=== PATIENT | male | born 1975 | race Caucasian/White ===

== ENCOUNTER 2017-10-30 06:37 | Emergency (ER) | payer OTHER ==
[2017-10-30] MEDS ORDERED: FAMOTIDINE 20 MG TAB PO STA (07:38)
[2017-10-30] MEDS ORDERED: DEXAMETHASONE SOD PHOSPHATE 10 MG/ML 1 ML VIAL IM STA (07:38)
[2017-10-30] MEDS ORDERED: predniSONE 20 MG TAB PO STA (07:38)
[2017-10-30] MEDS ORDERED: hydrOXYzine HCL 25 MG TAB PO STA (07:38)
--- NOTE | 2017-10-30 07:45 | ED ---
General Adult HPI - General Chief complaint: Skin/Abscess/Foreign Body Stated complaint: skin problem Time Seen by Provider: 10/30/17 07:30 Source: patient, RN notes reviewed, old records reviewed Mode of arrival: ambulatory Limitations: no limitations - History of Present Illness Initial comments: This is a 41-year-old male to the ER for evaluation of rash. Patient has had rash is been progressing now for a few days. Patient initially had thermal burn to right hand. Patient did receive burn care for that right hand. They began to show signs of infection and was treated with antibiotics and Bactroban , patient states once he started that medication (the worse itching rash rising up arms and onto his face. Patient denies any shortness of breath cough congestion or fever. Patient denies any pain, states rash is just itchy - Related Data Previous Rx's Medication Instructions Recorded Famotidine [Pepcid] 20 mg PO BID #14 tablet 10/30/17 hydrOXYzine HCL [Atarax] 25 mg PO TID PRN #15 tab 10/30/17 predniSONE 50 mg PO DAILY #5 tab 10/30/17 Allergies Allergy/AdvReac Type Severity Reaction Status Date / Time No Known Allergies Allergy Verified 10/30/17 06:45 Review of Systems ROS Statement: Those systems with pertinent positive or pertinent negative responses have been documented in the HPI. ROS Other: All systems not noted in ROS Statement are negative. Past Medical History Past Medical History: No Reported History, Asthma, COPD, Hypertension History of Any Multi-Drug Resistant Organisms: None Reported Past Surgical History: Appendectomy Past Psychological History: No Psychological Hx Reported Smoking Status: Current every day smoker Past Alcohol Use History: Occasional Past Drug Use History: Marijuana General Exam - General Exam Comments Initial Comments: Patient with rash to face, forehead, cheeks, right and left hands spreading up arm, pleuritic rash erythematous Limitations: no limitations General appearance: alert, in no apparent distress Head exam: Present: atraumatic, normocephalic, normal inspection Eye exam: Present: normal appearance, PERRL, EOMI. Absent: scleral icterus, conjunctival injection, periorbital swelling ENT exam: Present: normal exam, mucous membranes moist Neck exam: Present: normal inspection. Absent: tenderness, meningismus, lymphadenopathy Respiratory exam: Present: normal lung sounds bilaterally. Absent: respiratory distress, wheezes, rales, rhonchi, stridor Cardiovascular Exam: Present: regular rate, normal rhythm, normal heart sounds. Absent: systolic murmur, diastolic murmur, rubs, gallop, clicks GI/Abdominal exam: Present: soft, normal bowel sounds. Absent: distended, tenderness, guarding, rebound, rigid Extremities exam: Present: normal inspection, full ROM, normal capillary refill. Absent: tenderness, pedal edema, joint swelling, calf tenderness Back exam: Present: normal inspection Neurological exam: Present: alert, oriented X3, CN II-XII intact Psychiatric exam: Present: normal affect, normal mood Skin exam: Present: warm, dry, intact, normal color. Absent: rash Course Vital Signs 10/30/17 06:38 Temperature 97.0 F L Pulse Rate 101 H Respiratory 18 Rate Blood Pressure 139/92 O2 Sat by Pulse 99 Oximetry - Reevaluation(s) Reevaluation #1: 10/30/17 07:43 Patient currently taking Augmentin and Bactroban Medical Decision Making - Medical Decision Making The ER for evaluation of rash. Rash on right arm left arm spreading up arms and onto face. Patient had recent burn was treated for infection and is currently having worse rash that is itchy, patient will be treated with antihistamines, steroids and discharged Disposition Clinical Impression: Contact dermatitis Disposition: HOME SELF-CARE Condition: Good Instructions: Contact Dermatitis (ED) Prescriptions: Famotidine [Pepcid] 20 mg PO BID #14 tablet hydrOXYzine HCL [Atarax] 25 mg PO TID PRN #15 tab PRN Reason: Itching predniSONE 50 mg PO DAILY #5 tab Referrals: Solitario Dobbins MD [Primary Care Provider] - 1-2 days
[2017-10-30 09:01] VITALS: BP 134/72; PULSE 88; RESP 20; TEMP 98
== END 2017-10-30 08:25 | disposition home or self-care (01) ==
LOC: EC 06:37
DX: L25.9 Unspecified contact dermatitis, unspecified cause (principal); F17.200 Nicotine dependence, unspecified, uncomplicated
CPT/HCPCS: 99283; 96372; J1100; J7512

== ENCOUNTER 2019-05-18 06:24 | Emergency (ER) | payer OTHER ==
[2019-05-18] MEDS ORDERED: IPRATROPIUM-ALBUTEROL 3 ML NEB INHALATION STA (06:39)
[2019-05-18] MEDS ORDERED: methylPREDNISolone SOD SUCCI 125 MG/2 ML VIAL IV STA (06:39)
[2019-05-18] MEDS ORDERED: SODIUM CHLORIDE 0.9% 1,000 ML IV STA (06:39)
--- NOTE | 2019-05-18 06:41 | ED ---
SOB HPI - General Chief Complaint: Shortness of Breath Stated Complaint: SOB Time Seen by Provider: 05/18/19 06:32 Source: patient, RN notes reviewed, old records reviewed Mode of arrival: ambulatory Limitations: no limitations - History of Present Illness Initial Comments: 43-year-old male with history of COPD and asthma presents today with chief compl aint of difficulty breathing onset last night and stay. Patient states that he took some Mucinex DM with a little bit of her relief and had his coughing under control. He states that the cough is a yellow phlegm which then turned to clear phlegm. Patient states he's had no fevers or chills. He denies chest pain. 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 He is a smoker. - Related Data Home Medications Medication Instructions Recorded Confirmed Albuterol Inhaler [Ventolin Hfa 1 - 2 puff INHALATION RT-Q6H PRN 10/30/17 05/18/19 Inhaler] Albuterol Nebulized [Ventolin 2.5 mg INHALATION RT-Q6H PRN 05/18/19 05/18/19 Nebulized] Previous Rx's Medication Instructions Recorded predniSONE 50 mg PO DAILY #5 tab 05/18/19 Allergies Allergy/AdvReac Type Severity Reaction Status Date / Time bee venom protein (honey bee) Allergy Anaphylaxis Verified 05/18/19 07:26 Review of Systems ROS Statement: Those systems with pertinent positive or pertinent negative responses have been documented in the HPI. ROS Other: All systems not noted in ROS Statement are negative. Past Medical History Past Medical History: No Reported History, Asthma, COPD, Hypertension History of Any Multi-Drug Resistant Organisms: None Reported Past Surgical History: Appendectomy Past Psychological History: Bipolar, Depression Smoking Status: Current every day smoker Past Alcohol Use History: Occasional Past Drug Use History: Marijuana General Exam - General Exam Comments Initial Comments: This is a 43-year-old male. Alert and oriented. No distress. Limitations: no limitations General appearance: alert, in no apparent distress Head exam: Present: atraumatic, normocephalic, normal inspection Eye exam: Present: normal appearance, PERRL, EOMI. Absent: scleral icterus, conjunctival injection, periorbital swelling ENT exam: Present: normal exam, mucous membranes moist Neck exam: Present: normal inspection. Absent: tenderness, meningismus, lymphadenopathy Respiratory exam: Present: wheezes (Minimal wheezing bilaterally.). Absent: normal lung sounds bilaterally, rales, rhonchi, stridor Cardiovascular Exam: Present: regular rate, normal rhythm, normal heart sounds. Absent: systolic murmur, diastolic murmur, rubs, gallop, clicks GI/Abdominal exam: Present: soft, normal bowel sounds. Absent: distended, tenderness, guarding, rebound, rigid Extremities exam: Present: normal inspection, full ROM, normal capillary refill. Absent: tenderness, pedal edema, joint swelling, calf tenderness Back exam: Present: normal inspection Neurological exam: Present: alert, oriented X3, CN II-XII intact Psychiatric exam: Present: normal affect, normal mood Skin exam: Present: warm, dry, intact, normal color. Absent: rash Course Vital Signs 05/18/19 05/18/19 05/18/19 06:27 06:54 07:05 Temperature 98.8 F Pulse Rate 90 80 82 Respiratory 20 16 16 Rate Blood Pressure 155/89 O2 Sat by Pulse 98 Oximetry Medical Decision Making - Medical Decision Making 43-year-old male with history of COPD and asthma presents with wheezing and cough for the past day. He's been taking his inhalers and using decongestants a little relief. He states it seemed worse this morning. Patient was given a double DuoNeb treatment IV site Medrol labwork was obtained. Patient's labwork was reviewed and unremarkable. Normal chest x-ray. Normal EKG. On reevaluation patient's wheezing is diminished and lung sounds are clear. He states he wants feels well to be discharged home. Patient advised to discontinue smoking greater than 5 minutes was spent discussing this with Patient. Patient will be discharged with a prescription for Solu-Medrol continuing his inhalers. Discussed case be follow-up. - Lab Data Result diagrams: 05/18/19 07:25 05/18/19 07:25 Lab Results 05/18/19 05/18/19 05/18/19 Range/Units 07:25 07:25 07:25 WBC 11.3 H (3.8-10.6) k/uL RBC 4.85 (4.30-5.90) m/uL Hgb 15.2 (13.0-17.5) gm/dL Hct 43.5 (39.0-53.0) % MCV 89.7 (80.0-100.0) fL MCH 31.3 (25.0-35.0) pg MCHC 34.9 (31.0-37.0) g/dL RDW 12.8 (11.5-15.5) % Plt Count 224 (150-450) k/uL Neutrophils % 67 % Lymphocytes % 26 % Monocytes % 4 % Eosinophils % 1 % Basophils % 0 % Neutrophils # 7.6 (1.3-7.7) k/uL Lymphocytes # 3.0 (1.0-4.8) k/uL Monocytes # 0.4 (0-1.0) k/uL Eosinophils # 0.1 (0-0.7) k/uL Basophils # 0.0 (0-0.2) k/uL PT 9.5 (9.0-12.0) sec INR 0.9 (<1.2) APTT 26.1 (22.0-30.0) sec Sodium 139 (137-145) mmol/L Potassium 3.7 (3.5-5.1) mmol/L Chloride 107 (98-107) mmol/L Carbon Dioxide 25 (22-30) mmol/L Anion Gap 7 mmol/L BUN 9 (9-20) mg/dL Creatinine 0.92 (0.66-1.25) mg/dL Est GFR (CKD-EPI)AfAm >90 (>60 ml/min/1.73 sqM) Est GFR (CKD-EPI)NonAf >90 (>60 ml/min/1.73 sqM) Glucose 110 H (74-99) mg/dL Calcium 9.2 (8.4-10.2) mg/dL Total Bilirubin 0.9 (0.2-1.3) mg/dL AST 21 (17-59) U/L ALT 31 (21-72) U/L Alkaline Phosphatase 82 (38-126) U/L Troponin I (0.000-0.034) ng/mL Total Protein 6.8 (6.3-8.2) g/dL Albumin 4.0 (3.5-5.0) g/dL 05/18/19 Range/Units 07:25 WBC (3.8-10.6) k/uL RBC (4.30-5.90) m/uL Hgb (13.0-17.5) gm/dL Hct (39.0-53.0) % MCV (80.0-100.0) fL MCH (25.0-35.0) pg MCHC (31.0-37.0) g/dL RDW (11.5-15.5) % Plt Count (150-450) k/uL Neutrophils % % Lymphocytes % % Monocytes % % Eosinophils % % Basophils % % Neutrophils # (1.3-7.7) k/uL Lymphocytes # (1.0-4.8) k/uL Monocytes # (0-1.0) k/uL Eosinophils # (0-0.7) k/uL Basophils # (0-0.2) k/uL PT (9.0-12.0) sec INR (<1.2) APTT (22.0-30.0) sec Sodium (137-145) mmol/L Potassium (3.5-5.1) mmol/L Chloride (98-107) mmol/L Carbon Dioxide (22-30) mmol/L Anion Gap mmol/L BUN (9-20) mg/dL Creatinine (0.66-1.25) mg/dL Est GFR (CKD-EPI)AfAm (>60 ml/min/1.73 sqM) Est GFR (CKD-EPI)NonAf (>60 ml/min/1.73 sqM) Glucose (74-99) mg/dL Calcium (8.4-10.2) mg/dL Total Bilirubin (0.2-1.3) mg/dL AST (17-59) U/L ALT (21-72) U/L Alkaline Phosphatase (38-126) U/L Troponin I <0.012 (0.000-0.034) ng/mL Total Protein (6.3-8.2) g/dL Albumin (3.5-5.0) g/dL 05/18/19 07:08 EKG shows normal sinus rhythm normal EKG. Ventricular rate of 85 bpm. MS interval is 152 milliseconds. QRS duration 104 ms. QTQTC 3-4/456 ms. - Radiology Data Radiology results: report reviewed Chest x-ray is negative for any acute cardio pulmonary process. Disposition Clinical Impression: COPD exacerbation Disposition: HOME SELF-CARE Condition: Good Instructions (If sedation given, give patient instructions): Asthma (ED) Additional Instructions: Patient should start the steroids tomorrow. Continue use your inhalers as directed. Follow-up with your primary care doctor within the next 1-2 days. Recommended having discussions about smoking cessation with PCP, and try to quit smoking. Prescriptions: predniSONE 50 mg PO DAILY #5 tab Is patient prescribed a controlled substance at d/c from ED?: No Referrals: Solitario Dobbins MD [Primary Care Provider] - 1-2 days Time of Disposition: 08:37
[2019-05-18 07:33] LABS: Basophils % (A) 0 %; Eosinophils # (A) 0.1 k/uL (0-0.7); Eosinophils % (A) 1 %; HCT 43.5 % (39.0-53.0); HGB 15.2 gm/dL (13.0-17.5); Lymphocytes % (A) 26 %; MCH 31.3 pg (25.0-35.0); MCHC 34.9 g/dL (31.0-37.0); MCV 89.7 fL (80.0-100.0); Mean Platelet Volume 6.8; Monocytes # (A) 0.4 k/uL (0-1.0); Monocytes % (A) 4 %; Neutrophils # (A) 7.6 k/uL (1.3-7.7); Neutrophils % (A) 67 %; Platelet Count 224 k/uL (150-450); RBC 4.85 m/uL (4.30-5.90); RDW 12.8 % (11.5-15.5); WBC 11.3 k/uL (3.8-10.6)
[2019-05-18 07:42] LABS: INR 0.9 (<1.2); Partial Thromboplastin Time 26.1 sec (22.0-30.0); Prothrombin Time 9.5 sec (9.0-12.0)
[2019-05-18 07:45] LABS: ALT 31 U/L (21-72); AST 21 U/L (17-59); African American GFR (CKD) >90 (>60 ml/min/1.73 sqM); Alkaline Phosphatase 82 U/L (38-126); Anion Gap 7 mmol/L; Blood Urea Nitrogen 9 mg/dL (9-20); Calcium 9.2 mg/dL (8.4-10.2); Carbon Dioxide 25 mmol/L (22-30); Chloride 107 mmol/L (98-107); Glucose 110 mg/dL (74-99); Potassium 3.7 mmol/L (3.5-5.1); Sodium 139 mmol/L (137-145); Total Bilirubin 0.9 mg/dL (0.2-1.3); Total Protein 6.8 g/dL (6.3-8.2)
--- NOTE | 2019-05-18 08:28 | XR ---
EXAMINATION TYPE: XR chest 2V DATE OF EXAM: 05/18/2019 COMPARISON: Prior chest x-ray 12/07/2014 HISTORY: Difficulty breathing, shortness of breath TECHNIQUE: Frontal and lateral views of the chest are obtained. FINDINGS: There is no focal air space opacity, pleural effusion, or pneumothorax seen. The cardiac silhouette size is within normal limits. Lung volumes are prominent. The osseous structures are inta ct. IMPRESSION: No acute cardiopulmonary process.
[2019-05-18 08:54] VITALS: BP 134/69; PULSE 83; RESP 19; TEMP 97.9
== END 2019-05-18 08:55 | disposition home or self-care (01) ==
LOC: EC 06:24
DX: J44.1 Chronic obstructive pulmonary disease with (acute) exacerbation (principal); F17.200 Nicotine dependence, unspecified, uncomplicated; Z71.6 Tobacco abuse counseling; Z91.030 Bee allergy status; Z79.51 Long term (current) use of inhaled steroids
CPT/HCPCS: 36415; 94640; 93005; 80053; 84484; 85025; 85610; 85730; 71046; 99285; 96374; 96361; J2930

== ENCOUNTER → 2020-05-30 | Outpatient (CLI) | payer OTHER ==
--- NOTE | 2020-05-30 11:52 | XR ---
EXAMINATION TYPE: XR ribs bilateral DATE OF EXAM: 05/30/2020 COMPARISON: NONE HISTORY: Right-sided rib pain TECHNIQUE: 4 views were obtained of the right and left rib cage FINDINGS: Biapical pleural thickening. Rib cage intact. No acute displaced rib fracture. Lungs clear. No obviou s pneumothorax. IMPRESSION: No acute displaced rib fracture
== END | disposition home or self-care (01) ==
LOC: RADXRMAIN 11:32
PROVIDERS: ATTEND Family Medicine
DX: R07.81 Pleurodynia (principal)
CPT/HCPCS: 71110

== ENCOUNTER → 2020-09-04 | Outpatient (CLI) | payer OTHER | END | disposition home or self-care (01) | LOC: LABWHC1 16:16 | PROVIDERS: ATTEND Family Medicine | DX: U07.1 COVID-19 (principal) | CPT/HCPCS: U0003; C9803 ==

== ENCOUNTER → 2020-11-09 | Outpatient (CLI) | payer OTHER | END | disposition home or self-care (01) | LOC: LABWHC1 16:53 | PROVIDERS: ATTEND Family Medicine | DX: Z20.822 Contact with and (suspected) exposure to COVID-19 (principal) | CPT/HCPCS: U0003; C9803 ==

== ENCOUNTER 2022-09-19 13:34 | Inpatient (IN) | payer OTHER ==
[2022-09-19] MEDS ORDERED: HEPARIN SODIUM 1,000 UN/ML (10ML VL) IV ONE (13:38)
[2022-09-19] MEDS ORDERED: SODIUM CHLORIDE 0.9% 1,000 ML IV STA (13:38)
[2022-09-19] MEDS ORDERED: MORPHINE SULFATE 2 MG/ML SYRINGE IVP STA ×2 (13:40→21:30)
[2022-09-19] MEDS ORDERED: MORPHINE SULFATE 4 MG/ML SYRINGE IVP STA (13:40)
[2022-09-19] MEDS ORDERED: HEPARIN SOD,PORK IN 0.45% NACL 25,000 UNIT in 0.45% NACL 1 250ML.BAG IV SCH (13:45)
--- NOTE | 2022-09-19 13:53 | ED ---
General Adult HPI - General Stated complaint: chest pain Time Seen by Provider: 09/19/22 13:34 Source: patient, EMS, RN notes reviewed, old records reviewed - History of Present Illness Initial comments: Patient is a 46-year-old male with past medical history remarkable for COPD, hypertension, CAD who took Cialis last night at approximately 4-5 PM presents emergency Department with sudden onset chest pain. Patient states he was having some chest discomfort this morning but it was extremely severe when he awoke at 1310. Immediately called EMS. States it was left-sided, sharp and achy. Very severe. When EMS arrived, they administered the patient 324 mg of aspirin, and brought the patient to the emergency department for further evaluation. Monitor did show signs concerning for ST segment elevations. Her 12-lead EKG does reveal an inferior wall MD with elevations in 2, 3, aVF as well as presurgical changes in V2, 1. The patient has no other symptoms at this time. He states he was diaphoretic and is still diaphoretic from the pain. Was a little lightheaded earlier which has since resolved. Already received 324 mg of chewable aspirin from EMS. Has not received any nitroglycerin tablets. Presents for further evaluation at this time. No history of MIs for the patient. - Related Data Home Medications Medication Instructions Recorded Confirmed Albuterol Inhaler [Ventolin Hfa 2 puff INHALATION RT-Q4H PRN 10/30/17 09/19/22 Inhaler] Albuterol Nebulized [Ventolin 2.5 mg INHALATION RT-Q6H PRN 05/18/19 09/19/22 Nebulized] Atorvastatin [Lipitor] 20 mg PO DIRECTED 09/19/22 09/19/22 Fluticasone Nasal [place]valon [Flonase 2 spray EA NOSTRIL DAILY PRN 09/19/22 09/19/22 Nasal Avalon] Fluticasone/Umeclidin/Vilanter 1 puff INHALATION RT-DAILY 09/19/22 09/19/22 [Trelegy Ellipta 200-62.5-25] Montelukast [Singulair] 10 mg PO DIRECTED 09/19/22 09/19/22 tadalafiL 5 mg PO DAILY PRN 09/19/22 09/19/22 Allergies Allergy/AdvReac Type Severity Reaction Status Date / Time bee venom protein (honey bee) Allergy Anaphylaxis Verified 09/19/22 13:55 Review of Systems ROS Statement: Those systems with pertinent positive or pertinent negative responses have been documented in the HPI. Review of Systems: CONST: Denies fever EYES: Denies blurry vision ENT: Denies nasal congestion C/V: Endorses chest pain RESP: Denies shortness of breath GI: Denies abdominal pain : Denies dysuria SKIN: Denies rash. MSK: Denies joint pain. NEURO: Denies headache ROS Other: All systems not noted in ROS Statement are negative. Past Medical History Past Medical History: No Reported History, Asthma, COPD, Hypertension History of Any Multi-Drug Resistant Organisms: None Reported Past Surgical History: Appendectomy Past Psychological History: Bipolar, Depression Past Alcohol Use History: Occasional Past Drug Use History: Marijuana General Exam - General Exam Comments Initial Comments: General: Appears in moderate to severe distress secondary to chest pain. HEAD: Normal with no signs of head trauma. EYES: PERRLA, EOMI, conjunctiva normal, no discharge. ENT: Hearing grossly intact, normal oropharynx. RESPIRATORY: Clear breath sounds bilaterally. No wheezes, rales, or rhonchi. C/V: Regular rate and rhythm. S1 and S2 auscultated, no edema, peripheral pulses 2+ and intact throughout. chest pain is nonreproducible on palpation. ABD: Abd is soft, nontender, nondistended EXT: Normal range of motion, no obvious deformity SKIN: No rashes or lesions observed on exposed skin. NEURO: Alert and oriented 4. Course Vital Signs 09/19/22 09/19/22 13:35 13:55 Pulse Rate 79 82 Respiratory 20 18 Rate Blood Pressure 149/121 157/128 O2 Sat by Pulse 99 99 Oximetry Medical Decision Making - Medical Decision Making Based on the patient's presentation and physical exam, I'm concerned for an acute ST segment elevation myocardial infarction. Patient took Cialis last night. EKG shows an inferior wall MD. We will avoid nitroglycerin tablets at this time. Vital signs are within acceptable limits. A second large-bore IV will be placed after EMS placed the initial. He already received 324 mg of aspirin from EMS. We'll place the patient on pads and a portable monitor. The STEMI pager was activated. Patient will be given a 1 L fluid bolus, started on IV heparin with a heparin bolus, we will obtain cardiac labs. Vasodilators will be avoided at this time. STEMI pager was activated at 1338. I spoke with Michaela the mid-level provider who works for cardiology as the oracle security consultant Dr. Pace was tied up and another catheter finisher and inspector procedure. They accepted the patient. He'll take the patient emergently to Food [facility]. Patient was transferred on portable last picker with pads with multiple nurses and serous condition to the cardiac catheter finisher and inspector at 1352. Chest x-ray as interpreted by myself reveals no evidence of acute cardiopulmonary process. No infiltrate. Laboratory studies are still pending at this time from initial arrival. I spoke with [facility] Dr. Brown who accepted the patient. [facility] covers for Dr. Dobbins. Patient will be admitted following catheter finisher and inspector procedure. Patient's laboratory studies returned after the patient was taken to [facility] General [facility]. They are remarkable for mild leukocytosis of 12.1 which is likely reactive. Patient's troponin is also elevated to 0.258, as expected. - Lab Data Result diagrams: 09/19/22 13:44 09/19/22 13:44 Lab Results 09/19/22 09/19/22 09/19/22 Range/Units 13:44 13:44 13:44 WBC 12.1 H (3.8-10.6) k/uL RBC 4.85 (4.30-5.90) m/uL Hgb 17.0 (13.0-17.5) gm/dL Hct 46.9 (39.0-53.0) % MCV 96.7 (80.0-100.0) fL MCH 35.1 H (25.0-35.0) pg MCHC 36.3 (31.0-37.0) g/dL RDW 12.8 (11.5-15.5) % Plt Count 300 (150-450) k/uL MPV 7.4 Neutrophils % 50 % Lymphocytes % 42 % Monocytes % 4 % Eosinophils % 1 % Basophils % 1 % Neutrophils # 6.1 (1.3-7.7) k/uL Lymphocytes # 5.1 H (1.0-4.8) k/uL Monocytes # 0.5 (0-1.0) k/uL Eosinophils # 0.2 (0-0.7) k/uL Basophils # 0.1 (0-0.2) k/uL Manual Slide Review Performed RBC Morphology Normal PT 10.2 (9.0-12.0) sec INR 1.0 (<1.2) APTT 22.7 (22.0-30.0) sec Sodium 140 (137-145) mmol/L Potassium 4.0 (3.5-5.1) mmol/L Chloride 108 H (98-107) mmol/L Carbon Dioxide 21 L (22-30) mmol/L Anion Gap 11 mmol/L BUN 9 (9-20) mg/dL Creatinine 0.93 (0.66-1.25) mg/dL Est GFR (CKD-EPI)AfAm >90 (>60 ml/min/1.73 sqM) Est GFR (CKD-EPI)NonAf >90 (>60 ml/min/1.73 sqM) Glucose 138 H (74-99) mg/dL Calcium 9.0 (8.4-10.2) mg/dL Magnesium 2.1 (1.6-2.3) mg/dL Total Bilirubin 1.2 (0.2-1.3) mg/dL AST 23 (17-59) U/L ALT 23 (4-49) U/L Alkaline Phosphatase 101 (38-126) U/L Troponin I (0.000-0.034) ng/mL Total Protein 7.2 (6.3-8.2) g/dL Albumin 4.4 (3.5-5.0) g/dL 09/19/22 Range/Units 13:44 WBC (3.8-10.6) k/uL RBC (4.30-5.90) m/uL Hgb (13.0-17.5) gm/dL Hct (39.0-53.0) % MCV (80.0-100.0) fL MCH (25.0-35.0) pg MCHC (31.0-37.0) g/dL RDW (11.5-15.5) % Plt Count (150-450) k/uL MPV Neutrophils % % Lymphocytes % % Monocytes % % Eosinophils % % Basophils % % Neutrophils # (1.3-7.7) k/uL Lymphocytes # (1.0-4.8) k/uL Monocytes # (0-1.0) k/uL Eosinophils # (0-0.7) k/uL Basophils # (0-0.2) k/uL Manual Slide Review RBC Morphology PT (9.0-12.0) sec INR (<1.2) APTT (22.0-30.0) sec Sodium (137-145) mmol/L Potassium (3.5-5.1) mmol/L Chloride (98-107) mmol/L Carbon Dioxide (22-30) mmol/L Anion Gap mmol/L BUN (9-20) mg/dL Creatinine (0.66-1.25) mg/dL Est GFR (CKD-EPI)AfAm (>60 ml/min/1.73 sqM) Est GFR (CKD-EPI)NonAf (>60 ml/min/1.73 sqM) Glucose (74-99) mg/dL Calcium (8.4-10.2) mg/dL Magnesium (1.6-2.3) mg/dL Total Bilirubin (0.2-1.3) mg/dL AST (17-59) U/L ALT (4-49) U/L Alkaline Phosphatase (38-126) U/L Troponin I 0.258 H* (0.000-0.034) ng/mL Total Protein (6.3-8.2) g/dL Albumin (3.5-5.0) g/dL - EKG Data -: EKG Interpreted by Me EKG Comments: 12-lead Electrocardiogram Interpretation Note EKG was reviewed and interpreted by myself. 12-lead ECG performed at 1334 is interpreted by me as revealing normal sinus rhythm at a rate of 72 beats per minute. [place] is normal. MA interval is 152 ms, QRS duration is 114 ms, QTc is [address] segment elevations in lead II, III, aVF. There are reciprocal depressions in leads I, aVL, V2 with T-wave inversions.. R wave progression across the precordium was satisfactory. My interpretation, this reveals an acute inferior wall MD.. Critical Care Time Critical Care Time: Yes Total Critical Care Time: 15 Critical Care Time: Upon my evaluation, this patient had a high probability of imminent or life- threatening deterioration due to STEMI, which required my direct attention, intervention, and personal management. I have personally provided 15 minutes of critical care time exclusive of time spent on separately billable procedures. Time includes review of laboratory data, radiology results, discussion with consultants, and monitoring for potential decompensation. Interventions were performed as documented in my note. Disposition Clinical Impression: STEMI (ST elevation myocardial infarction) Disposition: ADMITTED IP TO THIS HOSP Condition: Serious Time of Disposition: 13:52
--- NOTE | 2022-09-19 13:54 | XR ---
EXAMINATION TYPE: XR chest 1V portable DATE OF EXAM: 09/19/2022 COMPARISON: Chest x-ray May 18, 2019 HISTORY: Chest pain. TECHNIQUE: 2 AP portable frontal upright views of the chest are obtained. FINDINGS: There is chronic parenchymal changes bilaterally without suspicious focal air space opacit y, pleural effusion, or pneumothorax seen. The cardiac silhouette size is stable and within normal l imits. The osseous structures are demineralized. IMPRESSION: Chronic changes without acute pulmonary process.
[2022-09-19] MEDS ORDERED: HEPARIN SODIUM 1,000 UN/ML (10ML VL) ONE (13:56)
[2022-09-19] MEDS ORDERED: VERAPAMIL 2.5 MG/ML 2 ML AMP ONE (13:56)
[2022-09-19 13:58] LABS: Basophils # (A) 0.1 k/uL (0-0.2); Basophils % (A) 1 %; Eosinophils # (A) 0.2 k/uL (0-0.7); Eosinophils % (A) 1 %; HCT 46.9 % (39.0-53.0); Lymphocytes # (A) 5.1 k/uL (1.0-4.8); Lymphocytes % (A) 42 %; MCH 35.1 pg (25.0-35.0); MCHC 36.3 g/dL (31.0-37.0); MCV 96.7 fL (80.0-100.0); Mean Platelet Volume 7.4; Monocytes # (A) 0.5 k/uL (0-1.0); Monocytes % (A) 4 %; Neutrophils # (A) 6.1 k/uL (1.3-7.7); Neutrophils % (A) 50 %; Platelet Count 300 k/uL (150-450); RBC 4.85 m/uL (4.30-5.90); RDW 12.8 % (11.5-15.5); WBC 12.1 k/uL (3.8-10.6)
[2022-09-19] MEDS ORDERED: MIDAZOLAM 2 MG/2 ML VIAL IVP ONE (14:00)
[2022-09-19 14:05] LABS: Partial Thromboplastin Time 22.7 sec (22.0-30.0); Prothrombin Time 10.2 sec (9.0-12.0)
[2022-09-19] MEDS ORDERED: VERAPAMIL SYRINGE (5 MG/10 ML) IVP ONE ×2 (14:05→14:33)
[2022-09-19] MEDS ORDERED: LIDOCAINE 1% INJ 10MG/ML (30 ML VIAL-PF) SQ ONE (14:05)
[2022-09-19] MEDS ORDERED: niCARdipine 25 MG/10 ML VIAL ONE (14:05)
[2022-09-19] MEDS ORDERED: HYDROmorphone 1 MG/ML 1 ML SYRINGE IVP ONE (14:05)
[2022-09-19 14:08] LABS: ALT 23 U/L (4-49); AST 23 U/L (17-59); African American GFR (CKD) >90 (>60 ml/min/1.73 sqM); Albumin 4.4 g/dL (3.5-5.0); Alkaline Phosphatase 101 U/L (38-126); Anion Gap 11 mmol/L; Blood Urea Nitrogen 9 mg/dL (9-20); Carbon Dioxide 21 mmol/L (22-30); Chloride 108 mmol/L (98-107); Glucose 138 mg/dL (74-99); Magnesium 2.1 mg/dL (1.6-2.3); Non-African American GFR(CKD) >90 (>60 ml/min/1.73 sqM); Sodium 140 mmol/L (137-145); Total Bilirubin 1.2 mg/dL (0.2-1.3); Total Protein 7.2 g/dL (6.3-8.2)
--- NOTE | 2022-09-19 14:08 | P.CRDCN ---
History of Present Illness History of present illness: HISTORY OF PRESENTING ILLNESS This is a pleasant 46-year-old male past medical history significant for hypertension, dyslipidemia, chronic nicotine dependence, COPD. He does not follow with a interventional radiologist. We have been asked to see in consultation for STEMI. Patient presents to ER with left sided chest discomfort that started this morning but progressively got worse this afternoon. Located on the left side of his chest. It is non-radiating. Aggravated by exertion. Sharp and excruciating per patient. He had associated shortness of breath, nausea, vomiting and diaphoresis. EMS was called and patient was brought to the emergency department. EKG revealed old inferior wall RI with ST elevations in lead II, III, aVF. He denies any history of CAD, RI, stenting, valvular abnormalities, diabetes, stroke or seizures. He is a current every day smoker. Took Cialis last night around 5pm. DIAGNOSTICS * EKG reveals sinus rhythm, heart rate 72, ST elevation in leads II, III, aVF, ST depression in lead V2 * Chest xray no acute heart failure noted, chronic changes. No acute cardiopulmonary process * Laboratory date pending REVIEW OF SYSTEMS At the time of my exam: CONSTITUTIONAL: Denies fever or chills. +diaphoresis CARDIOVASCULAR:+ chest pain, +shortness of breath, Denies orthopnea, PND or palpitations. RESPIRATORY: Denies cough. GASTROINTESTINAL: Denies abdominal pain, diarrhea, constipation, +nausea +vomiting. MUSCULOSKELETAL: Denies myalgias. NEUROLOGIC: Denies numbness, tingling, headacbe or weakness. ENDOCRINE: Denies fatigue, weight change, polydipsia or polyurina. GENITOURINARY: Denies burning, hematuria or urgency with micturation. HEMATOLOGIC: Denies history of anemia or bleeding. PHYSICAL EXAMINATION Blood pressure 149/121, heart rate 79, saturations 99% 4L NC CONSTITUTIONAL: Diaphoretic HEENT: Head is normocephalic. No JVD. CHEST EXAMINATION: Lungs are clear to auscultation. HEART EXAMINATION: Regular rate and rhythm. S1, S2 heard. ABDOMEN: Soft, nontender. EXTREMITIES:no lower extremity edema and no calf tenderness. NEUROLOGIC EXAMINATION: Patient is awake, alert and oriented x3. ASSESSMENT Inferior STEMI History of hypertension Dyslipidemia Chronic nicotine dependence COPD PLAN Patient taken urgently to cardiac brick and blocker aid labor for cardiac catheterization. Procedure explained to patient and at bedside I have discussed the risks, benefits and alternative therapies for the above- mentioned procedure and for both sedation/analgesia as well as necessary blood product administration, if indicated, as they pertain to this patient. The patient has indicated understanding and acceptance of the risks and procedures discussed. Questions have been answered appropriately and he is agreeable to move forward with the above-stated procedure. Obtain 2D echocardiogram and doppler study to assess cardiac structure and function post procedural Further recommendations based on clinical course Nurse practitioner note has been reviewed by physician. Signing provider agrees with the documented findings, assessment, and plan of care. Past Medical History Past Medical History: No Reported History, Asthma, COPD, Hypertension History of Any Multi-Drug Resistant Organisms: None Reported Past Surgical History: Appendectomy Past Psychological History: Bipolar, Depression Past Alcohol Use History: Occasional Past Drug Use History: Marijuana Medications and Allergies Home Medications Medication Instructions Recorded Confirmed Type Albuterol Inhaler [Ventolin Hfa 1 - 2 puff INHALATION RT-Q6H PRN 10/30/17 05/18/19 History Inhaler] Albuterol Nebulized [Ventolin 2.5 mg INHALATION RT-Q6H PRN 05/18/19 05/18/19 History Nebulized] predniSONE 50 mg PO DAILY #5 tab 05/18/19 Rx Allergies Allergy/AdvReac Type Severity Reaction Status Date / Time bee venom protein (honey bee) Allergy Anaphylaxis Verified 09/19/22 13:55 Physical Exam Vitals: Vital Signs Pulse Resp BP Pulse Ox 09/19/22 13:35 79 20 149/121 99 Intake and Output 09/18/22 09/19/22 09/19/22 22:59 06:59 14:59 Other: Weight 95.254 kg Results Current Medications Generic Name Dose Route Start Last Admin Trade Name Freq PRN Reason Stop Dose Admin Sodium Chloride 1,000 mls @ 999 mls/hr 09/19/22 13:38 Saline 0.9% IV 09/19/22 14:38 .Q1H1M STA Heparin Sodium/Sodium Chloride 250 mls @ 0 mls/hr 09/19/22 13:45 25,000 unit/ Sodium Chloride IV .Q0M [facility] Protocol 12 UNITS/KG/HR Intake and Output 09/18/22 09/19/22 09/19/22 22:59 06:59 14:59 Other: Weight 95.254 kg Patient Weight 09/20/22 06:59 Weight 95.254 kg
[2022-09-19] MEDS ORDERED: HYDROmorphone 1 MG/ML 1 ML SYRINGE ONE (14:09)
[2022-09-19] MEDS ORDERED: HEPARIN SODIUM 1,000 UN/ML (10ML VL) IVP ONE ×2 (14:11→14:28)
[2022-09-19] MEDS ORDERED: CLOPIDOGREL 75 MG TAB PO ONE (14:12)
[2022-09-19 14:33] LABS: RBC Morphology Normal
[2022-09-19] MEDS ORDERED: IOPAMIDOL-370 100ML BTL INJ ONE (14:33)
[2022-09-19] MEDS ORDERED: SODIUM CHLORIDE 0.9% 1,000 ML IV ONE (14:35)
[2022-09-19] MEDS ORDERED: ATROPINE SULFATE 0.1 MG/ML 10ML SYRINGE IV PRN (14:37)
[2022-09-19] MEDS ORDERED: RX INFO: IV CONTRAST WAS GIVEN 1 EACH MISC MISCELLANE PRN (14:37)
[2022-09-19] MEDS ORDERED: NITROGLYCERIN SL TABS 0.4 MG TAB SUBLINGUAL PRN (14:37)
[2022-09-19] MEDS ORDERED: NON FORMULARY DRUG (Tadalafil [Tadalafil] 5 MG Tablet) PO PRN (14:37)
[2022-09-19] MEDS ORDERED: MAG HYDROX/AL HYDROX/SIMETH 30 ML CUP PO PRN (14:37)
[2022-09-19] MEDS ORDERED: FLUTICASONE 50MCG/SPRAY NASAL 16GM EA NOSTRIL PRN (14:37)
[2022-09-19] MEDS ORDERED: ALBUTEROL NEBULIZED 2.5 MG/3 ML INHALATION PRN (14:37)
[2022-09-19] MEDS ORDERED: ALBUTEROL HFA INHALER INHALATION PRN (14:37)
[2022-09-19] MEDS ORDERED: ATORVASTATIN 20 MG TAB PO SCH (14:45)
[2022-09-19] MEDS ORDERED: SODIUM CHLORIDE 0.9% 1,000 ML in EMPTY BAG 1 BAG IV SCH (14:45)
[2022-09-19 15:26] LABS: Glucose,Whole Blood 147 mg/dL (70-110)
[2022-09-19] MEDS: MONTELUKAST 10 MG TAB PO SCH (15:47)
[2022-09-19] MEDS: ATORVASTATIN 80 MG TAB PO SCH (16:19)
[2022-09-19] MEDS ORDERED: diphenhydrAMINE 50 MG/ML 1 ML VIAL IVP PRN (17:13)
[2022-09-19] MEDS ORDERED: CALCIUM CARBONATE 500 MG CHEWABLE PO PRN (17:14)
[2022-09-19] MEDS ORDERED: hydrALAZINE HCL 10 MG TAB PO PRN (17:27)
[2022-09-19] MEDS: lisinopriL 10 MG TAB PO SCH (17:37)
--- NOTE | 2022-09-19 18:57 | P.PCN ---
Date of Procedure: 09/19/22 Operative Findings: CARDIAC CATHETERIZATION AND PERCUTANEOUS CORONARY INTERVENTION PERFORMING PHYSICIAN: Candelario Pace MD, [facility] PROCEDURE PERFORMED: 1. Selective right and left coronary angiogram 2. Left heart catheterization 3. Successful stenting of mid RCA using 3.25 x 23 mm Xience SURINDER which with an excellent angiographic results 4. Successful stenting of the proximal RCA using 3.5 x 23 mm Xience SURINDER with an excellent angiographic results 5. Aspiration thrombectomy from the RCA INDICATION: Acute inferior ST elevation myocardial infarction COMPLICATION: None APPROACH: Right radial approach LEVEL OF SEDATION: Moderate with the sedation time off 31 minutes PROCEDURE DESCRIPTION: After obtaining an informed consent the patient was brought to the cardiac lab manager. The right radial artery was cannulated using puncture technique, the micropuncture wire passed easily then I placed a 6-British sheath at the right radial artery. I gave the patient 2 mg of verapamil intra-arterial. I did selective right and left coronary angiogram using JR4 and JL 3.5 catheters. After that I did intervene on the RCA. The procedure was completed without any complication. Left heart catheterization was performed using the JR4 catheter w hich cross the aortic valve and I did a pullback across the valve. SELECTIVE CORONARY ANGIOGRAM: The right coronary artery: Large caliber vessel and a dominant vessel. The RCA is occluded proximally was large thrombus burden Left main: Is angiographically normal and bifurcates into an LCx and LAD The left circumflex: Large caliber vessel nondominant vessel. The LCx is angiographically normal and gives rise into a large OM branch which appeared to be angiographically normal The left anterior descending artery: Large caliber vessel. The LAD appears to be angiographically normal. Gives rises into 3 diagonal branches appeared to be angiographically normal. HEMODYNAMICS: The LVEDP was about 18 mmHg was no significant gradient across aortic valve PCI OF THE RCA: Anticoagulation was initiated using heparin with continuous ACT monitoring. Using JR4 guide the RCA was engaged. Using a run-through wire I did wire the RCA. After that I did aspiration thrombectomy using the export catheter. Balloon angioplasty after that was performed using 2.5 mm balloon. I did after that stenting of the mid RCA using 3.25 x 23 mm stent where the stent was positioned under fluoroscopy guidance and deployed under its nominal pressure. The following angiogram showed the lesion approximately. Initially we thought is a spasm but we could not give the patient nitroglycerin because he received Cialis yesterday. For that reason I did stop at this point and I did an angiogram of the left coronary system then it came back using JR4 guide and took a picture which showed the lesion in the RCA proximally appears to be concerning and possibly flow-limiting. For that reason I decided to stent the lesion. I deployed 3.5 x 23 mm stent where the stent was positioned again under fluoroscopy guidance with about 2 mm overlap between the first and second stent. After that the area of overlap was 90 using the stent balloon and also the stent in the mid RCA was dilated using a 3.5 mm balloon. Final angiogram was performed and showed an excellent angiographic results and the procedure was completed without any complication CONCLUSION: Acute inferior ST elevation myocardial infarction Acute total occlusion of the RCA with a large thrombus burden. I did successful stenting of the RCA with a good angiographic results in the proximal and midportion Mild disease involving the left coronary system Mildly elevated left-sided filling pressure POSTPROCEDURE MANAGEMENT: #1 dual antiplatelet therapy using aspirin and Plavix for 12 months #2 aggressive cholesterol control #3 follow-up with the patient
[2022-09-19] MEDS: ZOLPIDEM 5 MG TAB PO PRN (21:37)
[2022-09-19] MEDS: METOPROLOL TARTRATE 25 MG TAB PO SCH (21:37)
[2022-09-20] MEDS: ZOLPIDEM 5 MG TAB PO PRN (01:07)
[2022-09-20 06:21] LABS: Basophils # (A) 0.1 k/uL (0-0.2); Basophils % (A) 0 %; Eosinophils % (A) 0 %; HCT 44.5 % (39.0-53.0); Lymphocytes # (A) 2.6 k/uL (1.0-4.8); Lymphocytes % (A) 20 %; MCH 35.2 pg (25.0-35.0); MCV 97.9 fL (80.0-100.0); Mean Platelet Volume 7.5; Monocytes # (A) 0.5 k/uL (0-1.0); Monocytes % (A) 4 %; Neutrophils # (A) 9.4 k/uL (1.3-7.7); Neutrophils % (A) 74 %; Platelet Count 250 k/uL (150-450); RBC 4.55 m/uL (4.30-5.90); RDW 12.8 % (11.5-15.5); WBC 12.6 k/uL (3.8-10.6)
[2022-09-20 07:00] LABS: ALT 40 U/L (4-49); AST 156 U/L (17-59); African American GFR (CKD) >90 (>60 ml/min/1.73 sqM); Albumin 4.1 g/dL (3.5-5.0); Alkaline Phosphatase 83 U/L (38-126); Anion Gap 7 mmol/L; Blood Urea Nitrogen 6 mg/dL (9-20); Calcium 8.9 mg/dL (8.4-10.2); Carbon Dioxide 23 mmol/L (22-30); Chloride 107 mmol/L (98-107); Glucose 118 mg/dL (74-99); Non-African American GFR(CKD) >90 (>60 ml/min/1.73 sqM); Potassium 4.3 mmol/L (3.5-5.1); Sodium 137 mmol/L (137-145); Total Bilirubin 1.1 mg/dL (0.2-1.3); Total Protein 6.8 g/dL (6.3-8.2)
--- NOTE | 2022-09-20 07:14 | P.PN ---
Subjective Progress Note Date: 09/20/22 Principal diagnosis: Acute inferior ST elevation myocardial infarction This is a 46-year-old gentleman with hypertension and dyslipidemia and smoking who presented to the hospital with chest discomfort and was diagnosed with acute inferior ST elevation myocardial infarction. Underwent an emergent heart catheterization and was found to have acute total occlusion of the RCA with a large thrombus burden. He underwent successful stenting of the RCA. E echo still pending. 09/20/2022 The patient was seen this morning. He is asymptomatic. He seems directly stable. No arrhythmia noted. The echo still pending. He still on dual antiplatelet therapy along with high intensity statin to his beta paul and SHELLI inhibitor. I would suggest transfer the patient to the floor. Monitor the patient for additional 24 hours. Following the echocardiogram. Possible discharge in the next 24 hours. Objective - Vital Signs Vital signs: Vital Signs Temp 97.9 F 09/20/22 00:00 Pulse 84 09/20/22 01:00 Resp 19 09/20/22 01:00 BP 158/95 09/20/22 01:00 Pulse Ox 96 09/20/22 01:00 FiO2 Intake & Output 09/19/22 09/20/22 09/20/22 18:59 06:59 18:59 Intake Total 1130 1065 Output Total 0 0 Balance 1130 1065 Weight 95.254 kg 93.3 kg Intake: IV 1130 665 Sodium Chloride 0.9% 1, 380 665 000 ml In Empty Bag 1 bag @ 1 ML/KG/HR 95.254 mls/ hr IV .[id number] [facility] Rx#: [id number] Oral 400 Output: Urine 0 0 Other: Voiding Method Urinal Toilet # Voids 0 1 - Constitutional General appearance: Present: no acute distress - Respiratory Respiratory: bilateral: CTA - Cardiovascular Rhythm: regular - Labs CBC & Chem 7: 09/20/22 05:31 09/20/22 05:31 Labs: Abnormal Lab Results - Last 24 Hours (Table) 09/19/22 09/19/22 09/19/22 Range/Units 13:44 13:44 13:44 WBC 12.1 H (3.8-10.6) k/uL MCH 35.1 H (25.0-35.0) pg Neutrophils # (1.3-7.7) k/uL Lymphocytes # 5.1 H (1.0-4.8) k/uL Chloride 108 H (98-107) mmol/L Carbon Dioxide 21 L (22-30) mmol/L BUN (9-20) mg/dL Glucose 138 H (74-99) mg/dL POC Glucose (mg/dL) (70-110) mg/dL AST (17-59) U/L Troponin I 0.258 H* (0.000-0.034) ng/mL 09/19/22 09/20/22 09/20/22 Range/Units 15:24 05:31 05:31 WBC 12.6 H (3.8-10.6) k/uL MCH 35.2 H (25.0-35.0) pg Neutrophils # 9.4 H (1.3-7.7) k/uL Lymphocytes # (1.0-4.8) k/uL Chloride (98-107) mmol/L Carbon Dioxide (22-30) mmol/L BUN 6 L (9-20) mg/dL Glucose 118 H (74-99) mg/dL POC Glucose (mg/dL) 147 H (70-110) mg/dL AST 156 H (17-59) U/L Troponin I (0.000-0.034) ng/mL Assessment and Plan Assessment: Assessment #1 Acute coronary syndrome with acute inferior ST elevation myocardial infarction #2 hypertension #3 dyslipidemia #4 smoking Plan #1 continue the current medical regimen including dual antiplatelet therapy along with high intensity statin along with anti-ischemic medications #2 follow-up echocardiogram #3 transferred to the floor
[2022-09-20] MEDS: IPRATROPIUM 0.5 MG/2.5 ML NEBU INHALATION SCH ×3 (07:56→15:00)
[2022-09-20] MEDS ORDERED: SYMBICORT 80-4.5 MCG INHALER INHALATION SCH (08:00)
[2022-09-20] MEDS: lisinopriL 10 MG TAB PO SCH (08:28)
[2022-09-20] MEDS: MONTELUKAST 10 MG TAB PO SCH (08:28)
[2022-09-20] MEDS: ATORVASTATIN 80 MG TAB PO SCH (08:28)
[2022-09-20] MEDS: METOPROLOL TARTRATE 25 MG TAB PO SCH (08:28)
[2022-09-20] MEDS ORDERED: ASPIRIN 81 MG PO SCH (09:00)
[2022-09-20] MEDS ORDERED: CLOPIDOGREL 75 MG TAB PO SCH (09:00)
--- NOTE | 2022-09-20 09:13 | P.HPIM ---
History of Present Illness H&P Date: 09/19/22 Chief Complaint: Chest pain 46-year-old male with past medical history remarkable for COPD, hypertension, CAD who took Cialis last night at approximately 4-5 PM presents emergency Department with sudden onset chest pain. Patient states he was having some chest discomfort this morning but it was extremely severe when he awoke at 1310. Immediately called EMS. States it was left-sided, sharp and achy. Very severe. When EMS arrived, they administered the patient 324 mg of aspirin, and brought the patient to the emergency department for further evaluation. Monitor did show signs concerning for ST segment elevations. Her 12-lead EKG does reveal an inferior wall AZ with elevations in 2, 3, aVF as well as presurgical changes in V2, 1. The patient has no other symptoms at this time. He states he was diaphoretic and is still diaphoretic from the pain. Was a little lightheaded earlier which has since resolved. Already received 324 mg of chewable aspirin from EMS. Has not received any nitroglycerin tablets. Presents for further evaluation at this time. No history of MIs for the patient. -- EKG reveals sinus rhythm, heart rate 72, ST elevation in leads II, III, aVF, ST depression in lead V2 - Chest xray no acute heart failure noted, chronic changes. No acute cardiopulmonary process Review of Systems CONSTITUTIONAL: Denies fever or chills. +diaphoresis CARDIOVASCULAR:+ chest pain, +shortness of breath, Denies orthopnea, PND or palpitations. RESPIRATORY: Denies cough. GASTROINTESTINAL: Denies abdominal pain, diarrhea, constipation, +nausea +vomiting. MUSCULOSKELETAL: Denies myalgias. NEUROLOGIC: Denies numbness, tingling, headacbe or weakness. ENDOCRINE: Denies fatigue, weight change, polydipsia or polyurina. GENITOURINARY: Denies burning, hematuria or urgency with micturation. HEMATOLOGIC: Denies history of anemia or bleeding. Past Medical History Past Medical History: No Reported History, Asthma, COPD, Hypertension History of Any Multi-Drug Resistant Organisms: None Reported Past Surgical History: Appendectomy Past Psychological History: Bipolar, Depression Past Alcohol Use History: Occasional Past Drug Use History: Marijuana Medications and Allergies Home Medications Medication Instructions Recorded Confirmed Type Albuterol Inhaler [Ventolin Hfa 2 puff INHALATION RT-Q4H PRN 10/30/17 09/19/22 History Inhaler] Albuterol Nebulized [Ventolin 2.5 mg INHALATION RT-Q6H PRN 05/18/19 09/19/22 History Nebulized] Atorvastatin [Lipitor] 20 mg PO DIRECTED 09/19/22 09/19/22 History Fluticasone Nasal Taberg [Flonase 2 spray EA NOSTRIL DAILY PRN 09/19/22 09/19/22 History Nasal Taberg] Fluticasone/Umeclidin/Vilanter 1 puff INHALATION RT-DAILY 09/19/22 09/19/22 History [Eddielerandall Ellipta 200-62.5-25] Montelukast [Singulair] 10 mg PO DIRECTED 09/19/22 09/19/22 History tadalafiL 5 mg PO DAILY PRN 09/19/22 09/19/22 History Allergies Allergy/AdvReac Type Severity Reaction Status Date / Time bee venom protein (honey bee) Allergy Anaphylaxis Verified 09/19/22 13:55 Latex, Natural Rubber AdvReac Mild Rash/Hives Verified 09/19/22 19:34 Physical Exam Vitals: Vital Signs Pulse Resp BP Pulse Ox 09/19/22 13:35 79 20 149/121 99 Intake and Output 09/18/22 09/19/22 09/19/22 22:59 06:59 14:59 Other: Weight 95.254 kg Blood pressure 149/121, heart rate 79, saturations 99% 4L NC CONSTITUTIONAL: Diaphoretic HEENT: Head is normocephalic. No JVD. CHEST EXAMINATION: Lungs are clear to auscultation. HEART EXAMINATION: Regular rate and rhythm. S1, S2 heard. ABDOMEN: Soft, nontender. EXTREMITIES:no lower extremity edema and no calf tenderness. NEUROLOGIC EXAMINATION: Patient is awake, alert and oriented x3. Results CBC & Chem 7: 09/20/22 05:31 09/20/22 05:31 Assessment and Plan Assessment: 1. Acute ST elevation AZ - Patient was taken straight to the Operations Associate and underwent heart catheterization with stenting of mid RCA and proximal RCA and aspiration thrombectomy from RCA - Cardiology recommending to continue dual antiplatelet therapy with aspirin and Plavix, along with high-intensity statin; patient remains on beta blockers and sahara inhibitors - 2-D echo is ordered and pending 2. Asthma/COPD; not in exacerbation; continue with home inhaler therapy in form of Symbicort, albuterol nebulizer treatments every 6 hours and albuterol inhaler every 4 hours when necessary - Continue with home dose of Singulair 10 mg daily 3. Hypertension; stable on lisinopril 10 mg daily, metoprolol tartrate 25 mg twice a day; we will use hydralazine 10 mg by mouth 4 times a day when necessary for systolic blood pressure greater than 160 4. Hyperlipidemia; Lipitor 80 mg by mouth daily at bedtime DVT prophylaxis; SCDs/heparin CODE STATUS; full code
--- NOTE | 2022-09-20 09:53 | CA ---
Transthoracic Echo Report Name: Jim Mcqueen Age: 46 Gender: M : 1975 Exam Date: 09/19/2022 15:34 Exam Location: [place] [facility] Ht (in): 73 Wt (lb): 210 Ordering Physician: Michaela Redman Attending/Referring Phys: Document Management Specialist Ciarra Garcia RDCS Procedure CPT: Indications: stemi Cardiac Hx: Technical Quality: Technically difficult study Contrast 1: Lumason Total Dose (mL): 4 Contrast 2: Total Dose (mL): MEASUREMENTS (Male / Female) Normal Values 2D ECHO LV Diastolic Diameter PLAX 4.4 cm 4.2 - 5.9 / 3.9 - 5.3 cm LV Systolic Diameter PLAX 3.4 cm IVS Diastolic Thickness 1.2 cm 0.6 - 1.0 / 0.6 - 0.9 cm LVPW Diastolic Thickness 1.4 cm 0.6 - 1.0 / 0.6 - 0.9 cm LV Relative Wall Thickness 0.6 LA Volume 34.7 cm??? 18 - 58 / 22 - 52 cm??? M-MODE Aortic Root Diameter MM 3.5 cm LA Systolic Diameter MM 1.9 cm LA Ao Ratio MM 0.5 AV Cusp Separation MM 2.2 cm DOPPLER AV Peak Velocity 76.8 cm/s AV Peak Gradient 2.4 mmHg MV Area PHT 3.5 cm??? Mitral E Point Velocity 80.6 cm/s Mitral A Point Velocity 59.8 cm/s Mitral E to A Ratio 1.3 MV Deceleration Time 218.8 ms MV E' Velocity 10.0 cm/s Mitral E to MV E' Ratio 8.0 FINDINGS Left Ventricle Mildly increased septal wall thickness. Mild Basal inferior and inferior lateral wall hypokinesis. Mildely decreased LV systolic function. EF estimated at 45-50%. Right Ventricle Normal right ventricular size and function. Right ventricular systolic pressure within normal limits. Right Atrium Normal right atrial size. Left Atrium Normal left atrial size. Mitral Valve Structurally normal mitral valve. No mitral stenosis, regurgitation or prolapse. Aortic Valve No aortic valve stenosis or regurgitation. Tricuspid Valve Structurally normal tricuspid valve. Pulmonic Valve Trace pulmonic regurgitation. Pericardium No pericardial effusion. Aorta Normal size aortic root and proximal ascending aorta. CONCLUSIONS Mildly impaired LV function. The EF is 45-50% Previewed by: Dr. Candelario Pace MD (Electronically Signed) Final Date: 20 September 2022 09:52
[2022-09-20 13:11] VITALS: BP 151/101; PULSE 68; RESP 18; TEMP 98.3
[2022-09-20 13:22] LABS: Appearance,Urine Clear (Clear); Bilirubin,Urine Negative (Negative); Blood,Urine Negative (Negative); Color,Urine Yellow; Glucose,Urine (UA) Negative (Negative); Ketones,Urine Negative (Negative); Leukocyte Esterase,Urine Negative (Negative); Nitrite,Urine Negative (Negative); PH, Urine 6.5 (5.0-8.0); Protein,Urine Negative (Negative); Specific Gravity,Urine 1.016 (1.001-1.035); Urobilinogen,Urine <2.0 mg/dL (<2.0)
[2022-09-20 13:30] VITALS: BMI 27.1
== END 2022-09-20 16:00 | disposition left against medical advice (07) | DRG 247 ==
LOC: EC 13:34 → SUPCPDRO 13:34 → 2SICU 13:59
PROVIDERS: ADMIT Internal Medicine; ATTEND Internal Medicine
PROC: 02C03ZZ Extirpation of Matter from Coronary Artery, One Artery, Percutaneous Approach (ICD-10-PCS; principal; 2022-09-19 18:20)
PROC: 4A023N7 Measurement of Cardiac Sampling and Pressure, Left Heart, Percutaneous Approach (ICD-10-PCS; principal; 2022-09-19 18:20)
PROC: B2111ZZ Fluoroscopy of Multiple Coronary Arteries using Low Osmolar Contrast (ICD-10-PCS; principal; 2022-09-19 18:20)
PROC: 027035Z Dilation of Coronary Artery, One Artery with Two Drug-eluting Intraluminal Devices, Percutaneous Approach (ICD-10-PCS; principal; 2022-09-19 18:20)
DX: I21.19 ST elevation (STEMI) myocardial infarction involving other coronary artery of inferior wall (principal); D72.829 Elevated white blood cell count, unspecified; J44.9 Chronic obstructive pulmonary disease, unspecified; F31.9 Bipolar disorder, unspecified; I10 Essential (primary) hypertension; E78.00 Pure hypercholesterolemia, unspecified; I25.10 Atherosclerotic heart disease of native coronary artery without angina pectoris; I25.2 Old myocardial infarction; F17.210 Nicotine dependence, cigarettes, uncomplicated; Z71.6 Tobacco abuse counseling; Z79.51 Long term (current) use of inhaled steroids; Z79.899 Other long term (current) drug therapy; Z91.030 Bee allergy status
CPT/HCPCS: 36415; 71045; 80053; 81003; 83735; 84145; 84484; 85025; 85610; 85730; 93005; 93306; 93458; 94640; 96374; 99285

== ENCOUNTER → 2024-08-23 | Outpatient (CLI) | payer BC, OTHER | LOC: CPPFTMAIN 13:46 | PROVIDERS: ATTEND Family Medicine | DX: J44.9 Chronic obstructive pulmonary disease, unspecified (principal); F17.200 Nicotine dependence, unspecified, uncomplicated; Z91.030 Bee allergy status; Z91.040 Latex allergy status; Z79.899 Other long term (current) drug therapy; Z79.51 Long term (current) use of inhaled steroids | CPT/HCPCS: 94060; 94726; 94729 ==

== ENCOUNTER 2024-10-11 22:38 | Emergency (ER) | payer BC, OTHER ==
[2024-10-11 22:42] VITALS: RESP 18; TEMP 98.6
[2024-10-11 23:00] LABS: Basophils % (A) 0 %; Eosinophils # (A) 0.3 k/uL (0-0.7); Eosinophils % (A) 2 %; HCT 43.2 % (39.0-53.0); HGB 14.9 gm/dL (13.0-17.5); Lymphocytes # (A) 3.9 k/uL (1.0-4.8); Lymphocytes % (A) 26 %; MCH 31.2 pg (25.0-35.0); MCHC 34.4 g/dL (31.0-37.0); MCV 90.8 fL (80.0-100.0); Mean Platelet Volume 6.5; Monocytes # (A) 0.7 k/uL (0-1.0); Monocytes % (A) 5 %; Neutrophils # (A) 9.7 k/uL (1.3-7.7); Neutrophils % (A) 66 %; Platelet Count 320 k/uL (150-450); RBC 4.76 m/uL (4.30-5.90); RDW 12.6 % (11.5-15.5); WBC 14.8 k/uL (3.8-10.6)
[2024-10-11 23:12] LABS: ALT 32 U/L (4-49); AST 19 U/L (17-59); African American GFR (CKD) >90 (>60 ml/min/1.73 sqM); Albumin 4.2 g/dL (3.5-5.0); Alkaline Phosphatase 118 U/L (38-126); Anion Gap 13 mmol/L; Blood Urea Nitrogen 14 mg/dL (9-20); Calcium 9.4 mg/dL (8.4-10.2); Carbon Dioxide 20 mmol/L (22-30); Chloride 99 mmol/L (98-107); Glucose 134 mg/dL (74-99); Magnesium 2.1 mg/dL (1.6-2.3); Non-African American GFR(CKD) >90 (>60 ml/min/1.73 sqM); Potassium 4.2 mmol/L (3.5-5.1); Sodium 132 mmol/L (137-145); Total Bilirubin 0.5 mg/dL (0.2-1.3); Total Protein 6.9 g/dL (6.3-8.2)
--- NOTE | 2024-10-11 23:20 | ED ---
General Adult HPI - General Chief complaint: Chest Pain Stated complaint: CP/SOB Time Seen by Provider: 10/11/24 22:42 Source: patient, RN notes reviewed, old records reviewed Mode of arrival: ambulatory Limitations: no limitations - History of Present Illness Initial comments: 48-year-old male presenting for several episodes of intermittent chest pain over the past 1 week. Patient is admitting to significant stress with recent health concerns with his . Patient himself does have history of coronary artery disease status post stenting approximately 2 years ago. He denies associated diaphoresis or vomiting. He is being treated for bronchitis currently. Pain has been intermittent, lower chest pain. - Related Data Home Medications Medication Instructions Recorded Confirmed Albuterol Inhaler [Ventolin Hfa 2 puff INHALATION RT-Q4H PRN 10/30/17 09/19/22 Inhaler] Albuterol Nebulized [Ventolin 2.5 mg INHALATION RT-Q6H PRN 05/18/19 09/19/22 Nebulized] Atorvastatin [Lipitor] 20 mg PO DIRECTED 09/19/22 09/19/22 Fluticasone Nasal [place] [Flonase 2 spray EA NOSTRIL DAILY PRN 09/19/22 09/19/22 Nasal [place]] Fluticasone/Umeclidin/Vilanter 1 puff INHALATION RT-DAILY 09/19/22 09/19/22 [Trelegy Ellipta 200-62.5-25] Montelukast [Singulair] 10 mg PO DIRECTED 09/19/22 09/19/22 tadalafiL 5 mg PO DAILY PRN 09/19/22 09/19/22 Allergies Allergy/AdvReac Type Severity Reaction Status Date / Time bee venom protein (honey bee) Allergy Anaphylaxis Verified 10/11/24 22:42 Latex, Natural Rubber AdvReac Mild Rash/Hives Verified 10/11/24 22:42 Review of Systems ROS Statement: Those systems with pertinent positive or pertinent negative responses have been documented in the HPI. ROS Other: All systems not noted in ROS Statement are negative. Past Medical History Past Medical History: Asthma, COPD, Hypertension, Myocardial Infarction (ME) Last Myocardial Infarction Date:: 09/19/2022 History of Any Multi-Drug Resistant Organisms: None Reported Past Surgical History: Appendectomy, Heart Catheterization With Stent Past Psychological History: Bipolar, Depression Smoking Status: Current every day smoker Past Alcohol Use History: Occasional Past Drug Use History: Marijuana General Exam Limitations: no limitations General appearance: alert, in no apparent distress Head exam: Present: atraumatic, normocephalic Eye exam: Present: normal appearance, PERRL ENT exam: Present: normal exam Neck exam: Present: normal inspection. Absent: tenderness, meningismus Respiratory exam: Present: normal lung sounds bilaterally. Absent: respiratory distress, wheezes, rhonchi Cardiovascular Exam: Present: regular rate, normal rhythm GI/Abdominal exam: Present: soft. Absent: distended, tenderness Extremities exam: Present: normal inspection, normal capillary refill Neurological exam: Present: alert, oriented X3 Psychiatric exam: Present: normal affect, normal mood Skin exam: Present: warm, dry, intact Course Vital Signs 10/11/24 22:40 Temperature 98.6 F Pulse Rate 87 Respiratory 18 Rate Blood Pressure 134/79 O2 Sat by Pulse 96 Oximetry Medical Decision Making - Medical Decision Making Was pt. sent in by a medical professional or institution (, PA, GENERAL PRACTICE, urgent care, hospital, or penitentiary...) When possible be specific @ -No Did you speak to anyone other than the patient for history (EMS, parent, family, police, friend...)? What history was obtained from this source @ -No Did you review nursing and triage notes (agree or disagree)? Why? @ -I reviewed and agree with nursing and triage notes Were old charts reviewed (outside hosp., previous admission, EMS record, old EKG, old radiological studies, urgent care reports/EKG's, penitentiary records)? Report findings @ -No old charts were reviewed Differential Chest Pain: Stable Angina, Unstable Angina, STEMI, NSTEMI Aortic Dissection, Pneumothorax, Musculoskeletal, Esophageal Spasm GERD, Cholecystitis, Pancreatitis, Zoster, this is not meant to be an all-inclusive list. EKG interpreted by me (3pts min.). @Sinus rhythm rate of 80, MD interval 155, QRS duration 105, QTc [address] segment elevation. X-rays interpreted by me (1pt min.). @ -Chest x-ray negative for acute cardiopulmonary disease CT interpreted by me (1pt min.). @ -None done U/S interpreted by me (1pt. min.). @ -None done What testing was considered but not performed or refused? (CT, X-rays, U/S, labs)? Why? @ -None What meds were considered but not given or refused? Why? @ -None Did you discuss the management of the patient with other professionals (pr ofessionals i.e. , PA, GENERAL PRACTICE, lab, RT, psych nurse, social media senior associate, tsa screener, teacher, environmental conservation officer, case management assistant)? Give summary @ -No Was smoking cessation discussed for >3mins.? @ -No Was critical care preformed (if so, how long)? @ -No Were there social determinants of health that impacted care today? How? (Homelessness, low income, unemployed, alcoholism, drug addiction, transportation, low edu. Level, literacy, decrease access to med. care, shelter, rehab)? @ -No Was there de-escalation of care discussed even if they declined (Discuss DNR or withdrawal of care, Hospice)? DNR status @ -No What co-morbidities impacted this encounter? (DM, HTN, Smoking, COPD, CAD, Cancer, CVA, ARF, Chemo, Hep., AIDS, mental health diagnosis, sleep apnea, morbid obesity)? @ -COPD, CAD] Was patient admitted / discharged? Hospital course, mention meds given and route, prescriptions, significant lab abnormalities, going to OR and other pertinent info. @48-year-old male with 1 week history of intermittent chest pain. History of CAD. EKG is sinus without ST segment elevation. Chest x-ray is clear. He has a mild leukocytosis but is currently on steroids. He has normal CMP, negative initial troponin. I did plan to obtain serial cardiac enzymes on this patient but patient states that he is feeling fine and wishes to be discharged. He states he has an appointment with his primary care provider. He is instructed to return if his symptoms should return or worsen at all. He has no active ches t pain at the time of discharge. Undiagnosed new problem with uncertain prognosis? @ -No Drug Therapy requiring intensive monitoring for toxicity (Heparin, Nitro, Insulin, Cardizem)? @ -No Were any procedures done? @ -No Diagnosis/symptom? @ -[Chest pain Acute, or Chronic, or Acute on Chronic? @ -Acute Uncomplicated (without systemic symptoms) or Complicated (systemic symptoms)? @ -Default Side effects of treatment? @ -No Exacerbation, Progression, or Severe Exacerbation? @ -No Poses a threat to life or bodily function? How? (Chest pain, [place], ME, pneumonia, PE, COPD, DKA, ARF, appy, cholecystitis, CVA, Diverticulitis, Homicidal, Suicidal, threat to staff... and all critical care pts) @ -Moderate risk, history of CAD - Lab Data Result diagrams: 10/11/24 22:51 10/11/24 22:51 Lab Results 10/11/24 10/11/24 10/11/24 Range/Units 22:51 22:51 22:51 WBC 14.8 H (3.8-10.6) k/uL RBC 4.76 (4.30-5.90) m/uL Hgb 14.9 (13.0-17.5) gm/dL Hct 43.2 (39.0-53.0) % MCV 90.8 (80.0-100.0) fL MCH 31.2 (25.0-35.0) pg MCHC 34.4 (31.0-37.0) g/dL RDW 12.6 (11.5-15.5) % Plt Count 320 (150-450) k/uL MPV 6.5 Neutrophils % 66 % Lymphocytes % 26 % Monocytes % 5 % Eosinophils % 2 % Basophils % 0 % Neutrophils # 9.7 H (1.3-7.7) k/uL Lymphocytes # 3.9 (1.0-4.8) k/uL Monocytes # 0.7 (0-1.0) k/uL Eosinophils # 0.3 (0-0.7) k/uL Basophils # 0.0 (0-0.2) k/uL PT 9.6 L (10.0-12.5) sec INR 0.8 (<1.2) APTT 23.9 (22.0-30.0) sec Sodium 132 L (137-145) mmol/L Potassium 4.2 (3.5-5.1) mmol/L Chloride 99 (98-107) mmol/L Carbon Dioxide 20 L (22-30) mmol/L Anion Gap 13 mmol/L BUN 14 (9-20) mg/dL Creatinine 0.89 (0.66-1.25) mg/dL Est GFR (CKD-EPI)AfAm >90 (>60 ml/min/1.73 sqM) Est GFR (CKD-EPI)NonAf >90 (>60 ml/min/1.73 sqM) Glucose 134 H (74-99) mg/dL Calcium 9.4 (8.4-10.2) mg/dL Magnesium 2.1 (1.6-2.3) mg/dL Total Bilirubin 0.5 (0.2-1.3) mg/dL AST 19 (17-59) U/L ALT 32 (4-49) U/L Alkaline Phosphatase 118 (38-126) U/L Troponin I (0.000-0.034) ng/mL Total Protein 6.9 (6.3-8.2) g/dL Albumin 4.2 (3.5-5.0) g/dL 10/11/24 Range/Units 22:51 WBC (3.8-10.6) k/uL RBC (4.30-5.90) m/uL Hgb (13.0-17.5) gm/dL Hct (39.0-53.0) % MCV (80.0-100.0) fL MCH (25.0-35.0) pg MCHC (31.0-37.0) g/dL RDW (11.5-15.5) % Plt Count (150-450) k/uL MPV Neutrophils % % Lymphocytes % % Monocytes % % Eosinophils % % Basophils % % Neutrophils # (1.3-7.7) k/uL Lymphocytes # (1.0-4.8) k/uL Monocytes # (0-1.0) k/uL Eosinophils # (0-0.7) k/uL Basophils # (0-0.2) k/uL PT (10.0-12.5) sec INR (<1.2) APTT (22.0-30.0) sec Sodium (137-145) mmol/L Potassium (3.5-5.1) mmol/L Chloride (98-107) mmol/L Carbon Dioxide (22-30) mmol/L Anion Gap mmol/L BUN (9-20) mg/dL Creatinine (0.66-1.25) mg/dL Est GFR (CKD-EPI)AfAm (>60 ml/min/1.73 sqM) Est GFR (CKD-EPI)NonAf (>60 ml/min/1.73 sqM) Glucose (74-99) mg/dL Calcium (8.4-10.2) mg/dL Magnesium (1.6-2.3) mg/dL Total Bilirubin (0.2-1.3) mg/dL AST (17-59) U/L ALT (4-49) U/L Alkaline Phosphatase (38-126) U/L Troponin I <0.012 (0.000-0.034) ng/mL Total Protein (6.3-8.2) g/dL Albumin (3.5-5.0) g/dL Disposition Clinical Impression: Chest pain Disposition: HOME SELF-CARE Condition: Fair Instructions (If sedation given, give patient instructions): Chest Pain (ED) Is patient prescribed a controlled substance at d/c from ED?: No Referrals: Solitario Dobbins MD [Primary Care Provider] - 1-2 days Time of Disposition: 00:34
[2024-10-11 23:45] LABS: INR 0.8 (<1.2); Partial Thromboplastin Time 23.9 sec (22.0-30.0); Prothrombin Time 9.6 sec (10.0-12.5)
--- NOTE | 2024-10-12 00:26 | XR ---
EXAM: XR Chest, 2 Views CLINICAL HISTORY: ITS.REASON XR Reason: Chest Pain TECHNIQUE: Frontal and lateral views of the chest. COMPARISON: No relevant prior studies available. FINDINGS: Lungs: Unremarkable. No consolidation. Pleural space: Unremarkable. No pneumothorax. Heart: Unremarkable. No cardiomegaly. Mediastinum: Unremarkable. Normal mediastinal contour. Bones/joints: Unremarkable. No acute fracture. IMPRESSION: No consolidation.
[2024-10-12 01:02] VITALS: BP 132/82; PULSE 76
== END 2024-10-12 01:02 | disposition home or self-care (01) ==
LOC: EC 22:38
DX: R07.89 Other chest pain (principal); I25.10 Atherosclerotic heart disease of native coronary artery without angina pectoris; J44.89 Other specified chronic obstructive pulmonary disease; F17.200 Nicotine dependence, unspecified, uncomplicated; Z91.030 Bee allergy status; Z91.040 Latex allergy status
CPT/HCPCS: 36415; 71046; 80053; 83735; 84484; 85025; 85610; 85730; 93005; 99285